=== PATIENT | female | born 1990 | race Caucasian/White ===

== ENCOUNTER → 2017-05-31 | Outpatient (CLI) | payer OTHER ==
--- NOTE | 2017-05-31 22:21 | MR ---
EXAMINATION TYPE: MR brain wo/w con DATE OF EXAM: 05/31/2017 COMPARISON: Prior MRI brain January 04, 2016. HISTORY: White matter changes per order. Symptoms of headaches and dizziness or hearing loss per jaquan ent. TECHNIQUE: Multiplanar, multisequence images of the brain and brainstem is performed without and with IV contras t, utilizing 5.5 mL intravenous Gadavist gadolinium contrast is administered intravenously. Demyelin ating disease protocol with additional Sagittal Flair sequence performed. FINDINGS: T2 Lesions Present : Yes Approximate Number of Lesions: 5-8 small scattered lesions all measuring 4 mm or smaller in size Locations Identified : Scattered deep and periventricular Size of Reference Lesion(s): 1. 0.4 cm x 0.3 cm x 0.1 cm on axial image 21 and sagittal image 25 right frontal lesion stable Enhancing Lesion(s) Present: No Change from Prior: Stable Diffusion weighted images demonstrate no evidence of a recent infarct or other diffusion abnormality. There is no worrisome extra-axial fluid collection. The ventricular system and cisternal spaces ar e normal in size and appearance. The brain volume is age appropriate. Midline structures demonstrate normal morphology. The craniocervical junction appears within normal limits. Post contrast images demonstrate no abnormal enhancement. The dural venous sinuses appear pa tent. There is mild mucosal thickening inferiorly in bilateral ethmoid sinuses redemonstrated. The v isualized sinuses are otherwise clear and the globes are intact. IMPRESSION: Minimal nonspecific white matter changes redemonstrated. No new or enhancing lesions are seen.
== END | disposition home or self-care (01) ==
LOC: RADMRIMAIN 20:30
PROVIDERS: ATTEND Nurse Practitioner Acute Care
DX: R90.82 White matter disease, unspecified (principal)
CPT/HCPCS: 70553; A9581

== ENCOUNTER → 2019-01-15 | Outpatient (CLI) | payer BC ==
[2019-01-15 21:53] LABS: Hemoglobin A1C 5.4 % (4.0-6.0)
== END | disposition home or self-care (01) ==
LOC: LABWHC1 13:51
PROVIDERS: ATTEND Family Medicine
DX: Z51.81 Encounter for therapeutic drug level monitoring (principal); Z79.899 Other long term (current) drug therapy
CPT/HCPCS: 36415; 83036; 84681

== ENCOUNTER → 2019-02-12 | Outpatient (CLI) | payer BC | END | disposition home or self-care (01) | LOC: LABWHC1 10:35 | PROVIDERS: ATTEND Family Medicine | DX: R10.9 Unspecified abdominal pain (principal) | CPT/HCPCS: 36415; 84681 ==

== ENCOUNTER → 2019-02-15 | Outpatient (CLI) | payer BC | END | disposition home or self-care (01) | LOC: LABWHC1 09:53 | PROVIDERS: ATTEND Obstetrics & Gynecology | DX: Z34.90 Encounter for supervision of normal pregnancy, unspecified, unspecified trimester (principal) | CPT/HCPCS: 36415; 84702 ==

== ENCOUNTER → 2019-02-18 | Outpatient (CLI) | payer BC | END | disposition home or self-care (01) | LOC: LABWHC1 09:22 | PROVIDERS: ATTEND Obstetrics & Gynecology | DX: Z34.90 Encounter for supervision of normal pregnancy, unspecified, unspecified trimester (principal); Z3A.00 Weeks of gestation of pregnancy not specified | CPT/HCPCS: 36415; 84702 ==

== ENCOUNTER 2019-10-01 12:27 | Observation (INO) | payer BC ==
[2019-10-01] MEDS ORDERED: SODIUM CHLORIDE 0.9% 2,000 ML IV ONE (13:14)
[2019-10-01] MEDS ORDERED: ACETAMINOPHEN TAB 500 MG TAB PO STA (13:15)
[2019-10-01 14:07] LABS: Appearance,Urine Cloudy (Clear); Bacteria,Urine Rare /hpf; Bilirubin,Urine Negative (Negative); Blood,Urine Negative (Negative); Color,Urine Yellow; Glucose,Urine (UA) Negative (Negative); Hyaline Casts,Urine 3 /lpf (0-2); Ketones,Urine 4+ (Negative); Leukocyte Esterase,Urine Large (Negative); Mucus,Urine Few /hpf; Nitrite,Urine Negative (Negative); PH, Urine 6.5 (5.0-8.0); Protein,Urine 1+ (Negative); RBC,Urine 2 /hpf (0-5); Specific Gravity,Urine 1.025 (1.001-1.035); Squamous Epithelial Cell,Urine 15 /hpf (0-4); Urobilinogen,Urine <2.0 mg/dL (<2.0); WBC,Urine 5 /hpf (0-5)
[2019-10-01] MEDS ORDERED: diphenhydrAMINE 25 MG CAP PO STA (14:15)
--- NOTE | 2019-10-01 14:19 | ED ---
URI HPI - General Chief Complaint: Upper Respiratory Infection Stated Complaint: 36wks preg, fever, cough Time Seen by Provider: 10/01/19 12:56 Source: patient, RN notes reviewed, old records reviewed Mode of arrival: ambulatory Limitations: no limitations - History of Present Illness Initial Comments: 29-year-old female presents today for a valve her concern for cough congestion and fever. She is 36 weeks . It is a . Her STAMPING MILL TENDER is Dr. Prince. She does have a history of gestational diabetes. She states that she was treated with a Z-Jeb for upper respiratory congestion last week. She was doing well up until last night when she started to develop a fever. Patient reports she's had persistent coughing that has been nonproductive. She denies any pleuritic chest pain. She does report that her abdominal muscles and chest wall muscles have been sore due to coughing. Did have a dose of Tylenol 6:00. - Related Data Home Medications Medication Instructions Recorded Confirmed Pnv,Calcium 72/Iron/Folic Acid 1 tab PO 09/11/19 [ Plus Tablet] Previous Rx's Medication Instructions Recorded SUMAtriptan SUCCINATE [Imitrex] 50 mg PO ONCE PRN #10 tablet 08/13/15 Ciprofloxacin HCl [Cipro] 500 mg PO Q12HR #10 tablet 07/07/17 Hydrocodone/Acetaminophen [Lovilia 1 tab PO Q6HR PRN #15 tab 07/07/17 5-325] Ibuprofen [Motrin] 600 mg PO Q8HR PRN #30 tab 07/07/17 Allergies Allergy/AdvReac Type Severity Reaction Status Date / Time adhesive tape Allergy Rash/Hives Verified 09/30/19 10:00 Review of Systems ROS Statement: Those systems with pertinent positive or pertinent negative responses have been documented in the HPI. ROS Other: All systems not noted in ROS Statement are negative. Past Medical History Past Medical History: Neurologic Disorder Additional Past Medical History / Comment(s): anxiety History of Any Multi-Drug Resistant Organisms: None Reported Additional Past Surgical History / Comment(s): oral, laparoscopy Past Psychological History: Anxiety, Depression Smoking Status: Never smoker General Exam - General Exam Comments Initial Comments: Patient is a 29-year-old female. Patient appears in mild spinal discomfort. Limitations: no limitations General appearance: alert, in no apparent distress Head exam: Present: atraumatic, normocephalic, normal inspection Eye exam: Present: normal appearance, PERRL, EOMI. Absent: scleral icterus, conjunctival injection, periorbital swelling ENT exam: Present: normal exam, mucous membranes moist Neck exam: Present: normal inspection. Absent: tenderness, meningismus, lymphadenopathy Respiratory exam: Present: normal lung sounds bilaterally. Absent: respiratory distress, wheezes, rales, rhonchi, stridor Cardiovascular Exam: Present: regular rate, normal rhythm, normal heart sounds. Absent: systolic murmur, diastolic murmur, rubs, gallop, clicks GI/Abdominal exam: Present: soft, normal bowel sounds, other (36 weeks .). Absent: distended, tenderness, guarding, rebound, rigid Extremities exam: Present: normal inspection, full ROM, normal capillary refill. Absent: tenderness, pedal edema, joint swelling, calf tenderness Back exam: Present: normal inspection Neurological exam: Present: alert, oriented X3, CN II-XII intact Psychiatric exam: Present: normal affect, normal mood Skin exam: Present: warm, dry, intact, normal color. Absent: rash Course Vital Signs 10/01/19 10/01/19 10/01/19 12:46 13:38 14:15 Temperature 98.6 F 101.1 F H Pulse Rate 128 H 140 H Respiratory 18 18 Rate Blood Pressure 118/64 101/67 O2 Sat by Pulse 98 98 Oximetry 10/01/19 10/01/19 10/01/19 15:07 15:49 15:52 Temperature 99.4 F Pulse Rate 120 H 125 H Respiratory 18 18 Rate Blood Pressure 105/62 105/55 O2 Sat by Pulse 98 98 Oximetry Medical Decision Making - Medical Decision Making 29-year-old female cough congestion and fever. She is 36 weeks , started to have cough congestion and fever starting today. Was treated with azithromycin by PCP last week. Patient's STAMPING MILL TENDER is Dr. Prince. Denies any significant cramping or abdominal pain at this time. Denies specific chest pain is completely diffuse body aches and cough. is positive for influenza A. Patient was given Tylenol, 2 L bolus. Given Robitussin Tamiflu. She has a cough but no systemic chest pain. I obtained heart tones were 160 bpm. Patient at this time has continued to have tachycardia, and. Generally ill after fluid bolus. I discussed this with Dr. Crandall who discussed this with Dr. Garcia. Recommended putting the Patient on a 4 hour monitor. Patient and his family admitted to observation, the 4 hour monitor completed. Continuing fluids, Tylenol as needed for fever and pain. - Lab Data Lab Results 10/01/19 10/01/19 Range/Units 12:51 13:24 Urine Color Yellow Urine Appearance Cloudy H (Clear) Urine pH 6.5 (5.0-8.0) Ur Specific [place] 1.025 (1.001-1.035) Urine Protein 1+ H (Negative) Urine Glucose (UA) Negative (Negative) Urine Ketones 4+ H (Negative) Urine Blood Negative (Negative) Urine Nitrite Negative (Negative) Urine Bilirubin Negative (Negative) Urine Urobilinogen <2.0 (<2.0) mg/dL Ur Leukocyte Esterase Large H (Negative) Urine RBC 2 (0-5) /hpf Urine WBC 5 (0-5) /hpf Ur Squamous Epith Cells 15 H (0-4) /hpf Urine Bacteria Rare H (None) /hpf Hyaline Casts 3 H (0-2) /lpf Urine Mucus Few H (None) /hpf Influenza Type A RNA Detected H (Not Detectd) Influenza Type B (PCR) Not Detected (Not Detectd) Disposition Clinical Impression: Influenza A, 36 weeks gestation of , Dehydration Disposition: ADMITTED IP TO THIS HOSP Condition: Stable Is patient prescribed a controlled substance at d/c from ED?: No Referrals: John Aragon MD [Primary Care Provider] - 1-2 days Time of Disposition: 16:14
[2019-10-01] MEDS ORDERED: OSELTAMIVIR 75 MG CAP PO STA (15:29)
[2019-10-01] MEDS ORDERED: guaiFENesin-DM 100-10MG/5ML 10 ML CUP PO STA (15:33)
[2019-10-01] MEDS ORDERED: NALOXONE 0.4 MG/ML 1 ML VIAL IV PRN (16:14)
[2019-10-01] MEDS ORDERED: ACETAMINOPHEN TAB 325 MG TAB PO PRN (16:14)
[2019-10-01] MEDS ORDERED: SODIUM CHLORIDE 0.9% 1,000 ML IV SCH (16:15)
[2019-10-01 16:42] LABS: Glucose,Whole Blood 105 mg/dL (75-99)
[2019-10-01] MEDS ORDERED: METOCLOPRAMIDE 5 MG/ML 2 ML VIAL IVP STA (17:30)
[2019-10-01] MEDS ORDERED: guaiFENesin-DM 100-10MG/5ML 10 ML CUP PO PRN (17:32)
[2019-10-01] MEDS: LACTATED RINGERS 1,000 ML IV SCH (18:15)
[2019-10-01] MEDS: ACETAMINOPHEN TAB 500 MG TAB PO PRN (20:02)
--- NOTE | 2019-10-01 21:19 | P.OBCN ---
History of Present Illness Consult date: 10/01/19 Reason for consult: other (Influenza and ) Chief complaint: Upper respiratory symptoms, influenza, and History of present illness: This patient is a pleasant 29-year-old 1 para 0 female estimated date of confinement 10/25/2019 estimated gestational age 36-4/7 weeks who presented to the emergency department earlier today with complaints of a one-week history of upper respiratory symptoms. Patient states that she went to Dr. Silva's office with some respiratory symptoms last week given a azithromycin. Her symptoms became worse she presented to the emergency department for evaluation. Patient had a influenza a swab that was positive today and despite IV hydration, Tamiflu and IV Tylenol she is still did not appear able to go home. I was contacted by Dr. Crandall emergency department and I recommended she be admitted by her primary care for the influenza and we will follow closely with her . care is per Dr. Prince. does appear to be complicated by diet-controlled gestational diabetes. Patient's been followed with maternal- medicine for this. Review of Systems Constitutional: Reports as per HPI Respiratory: Reports as per HPI, Reports cough, Reports dyspnea, Reports wheezing Genitourinary: Reports Menstruation: Reports amenorrhea Past Medical History Past Medical History: Asthma, Neurologic Disorder Additional Past Medical History / Comment(s): anxiety History of Any Multi-Drug Resistant Organisms: None Reported Additional Past Surgical History / Comment(s): oral, laparoscopy Past Anesthesia/Blood Transfusion Reactions: No Reported Reaction Past Psychological History: Anxiety, Depression Smoking Status: Former smoker Past Alcohol Use History: Occasional Past Drug Use History: None Reported - Past Family History Mother Family Medical History: No Reported History Medications and Allergies Home Medications Medication Instructions Recorded Confirmed Type Pnv,Calcium 72/Iron/Folic Acid 1 tab PO DAILY 09/11/19 10/01/19 History [ Plus Tablet] Acetaminophen Tab [Tylenol Tab] 1,000 mg PO Q6H PRN 10/01/19 10/01/19 History Albuterol Sulfate [Ventolin HFA] 2 puff INHALATION RT-Q4H PRN 10/01/19 10/01/19 History Azithromycin [Zithromax Z-pack] See Taper PO DAILY 10/01/19 10/01/19 History Ondansetron HCl [Zofran] 4 mg PO Q8H PRN 10/01/19 10/01/19 History Allergies Allergy/AdvReac Type Severity Reaction Status Date / Time adhesive tape Allergy Rash/Hives Verified 10/01/19 17:02 Exam Vital Signs Temp Pulse Pulse Resp BP BP Pulse Ox 10/01/19 18:09 100.5 F H 116 H 20 109/60 96 10/01/19 17:46 120 H 18 113/70 98 10/01/19 16:30 118 H 18 105/62 98 10/01/19 16:00 108 H 18 105/55 98 10/01/19 15:52 125 H 18 105/55 98 10/01/19 15:49 99.4 F 10/01/19 15:07 120 H 18 105/62 98 10/01/19 14:15 101.1 F H 10/01/19 13:38 140 H 18 101/67 98 10/01/19 12:46 98.6 F 128 H 18 118/64 98 Intake and Output 10/01/19 10/01/19 10/01/19 06:59 14:59 22:59 Other: Weight 72.575 kg 71.668 kg Results blood work shows she is O positive, rubella immune, RPR nonreactive, hepatitis B negative, HIV is nonreactive, Glucola and three-hour GTT was abnormal and she's been followed by maternal medicine for this. Abnormal Lab Results - Last 24 Hours (Table) 10/01/19 10/01/19 10/01/19 Range/Units 12:51 13:24 16:40 POC Glucose (mg/dL) 105 H (75-99) mg/dL Urine Appearance Cloudy H (Clear) Urine Protein 1+ H (Negative) Urine Ketones 4+ H (Negative) Ur Leukocyte Esterase Large H (Negative) Ur Squamous Epith Cells 15 H (0-4) /hpf Urine Bacteria Rare H (None) /hpf Hyaline Casts 3 H (0-2) /lpf Urine Mucus Few H (None) /hpf Influenza Type A RNA Detected H (Not Detectd) Assessment and Plan Assessment: This is a pleasant 29-year-old 1 para 0 female 36-4/7 weeks gestation with a 1 week history of upper respiratory infection and positive influenza a swab. Patient's been already given Tamiflu in the emergency department and IV Tylenol as well as IV hydration. Patient's heart tones do show a higher baseline due to the patient's temperature however there is excellent variability and is very reassuring. From an obstetrical standpoint we should continue IV fluids and continuous monitoring at this time she needed continue IV Tylenol to control her temperature. Continue to follow with her primary care for respiratory treatment. (1) 36 weeks gestation of Current Visit: Yes Status: Acute Code(s): Z3A.36 - 36 WEEKS GESTATION OF SNOMED Code(s): 05943373 (2) Dehydration Current Visit: Yes Status: Acute Code(s): E86.0 - DEHYDRATION SNOMED Code(s): 93704972 (3) Influenza A Current Visit: Yes Status: Acute Code(s): J10.1 - FLU DUE TO OTH IDENT INFLUENZA VIRUS W OTH RESP MANIFEST SNOMED Code(s): 491706033
[2019-10-01] MEDS: OSELTAMIVIR 75 MG CAP PO SCH (22:02)
[2019-10-02] MEDS: LACTATED RINGERS 1,000 ML IV SCH (02:32)
[2019-10-02] MEDS: ACETAMINOPHEN TAB 500 MG TAB PO PRN (02:35)
[2019-10-02] MEDS: METOCLOPRAMIDE 5 MG/ML 2 ML VIAL IVP SCH ×2 (03:30→12:51)
--- NOTE | 2019-10-02 07:57 | P.PN ---
Progress Note - Text Progress Note Date: 10/02/19 Pt is 36 weeks 4 days today. Her flu symptoms are improving with tamiflu and IV hydration. The heart rate has come down to a normal range and is category 1 now. She will have NSTs q shift while in the hospital. She knows to take tylenol for fever and finish her tamiflu course. She is not lilliana and there is good movement. Sugars are controlled.
[2019-10-02 08:38] LABS: Glucose,Whole Blood 78 mg/dL (75-99)
[2019-10-02] MEDS: OSELTAMIVIR 75 MG CAP PO SCH (08:53)
[2019-10-02 09:18] VITALS: RESP 16
[2019-10-02 12:33] LABS: Glucose,Whole Blood 116 mg/dL (75-99)
[2019-10-02 12:51] VITALS: BP 113/70; PULSE 108; TEMP 98.8
--- NOTE | 2019-10-02 15:16 | HP ---
HISTORY AND PHYSICAL A 29-year-old white female, upper respiratory symptoms, influenza and , came in due to her wheezing and upper respiratory cough, congestion, failed on Z-Jeb as an outpatient. She was not able to go home due to severe dehydration and respiratory symptoms and nausea, vomiting. She is admitted to the hospital. She has a history of gestational diabetes. She is admitted with IV fluids and Tamiflu. 14-POINT REVIEW OF SYSTEMS: Negative except for being 37 weeks . She has history of anxiety, depression, former smoker. MEDICATIONS: At home include vitamin, Tylenol, Ventolin, failed Z-Jeb, Zofran p.r.n. ALLERGIES: ADHESIVE TAPE T-max is a 101.1, pulse 118 TO 120, respiratory 18-20, blood pressure is 100s to 115/60s to 70s, O2 is 98% on room air. INTEGUMENT: Dry mucous membranes. Poor skin turgor. LUNGS: Scattered rhonchi and wheeze. CARDIOVASCULAR: S1, S2, tachy. HEMATOLOGY: Negative Homans. ABDOMEN: Gravid. She is 36 and 4/7 weeks gestation with influenza A. Started on Tamiflu and IV fluids for dehydration and nausea medications. , consult Dr. Oliveros. Continue with IV fluids, rehydration. Please see further orders. When patient clinically improves, possibly a nonstress test will be done. MMODL / IJN: [id number] /
--- NOTE | 2019-10-08 16:01 | P.DS ---
Providers Date of admission: 10/01/19 17:27 Expected date of discharge: 10/02/19 Attending physician: John Aragon Consults: 10/01/19 16:14 Consult Physician Stat Consulting Provider: Lenin Oliveros Consult Reason/Comments: Influenza, 36 weeks Do you want consulting provider notified?: Yes Primary care physician: [facility] Course: Final Diagnoses: Acute influenza A with upper respiratory infection, failed outpatient treatment Dehydration This is a 36 week female admitted with acute influenza with nausea vomiting up her respiratory symptoms of cough congestion, wheezing, failed outpatient treatment with history of gestational diabetes. Evaluated by PLANNING ADVISOR. Maintained on IV fluid hydration, Tamiflu. Blood sugars controlled. Significa nt clinical improvement. Cleared by PLANNING ADVISOR for discharge. Patient is being discharged home in a stable condition with guarded prognosis. The impression and plan of care has been dictated as directed. : I performed a history and examination of this patient, discussed the same with the dictator. I agree with the dictator's note ,documented as a scribe. Any additional findings or plans will be noted. Patient Condition at Discharge: Stable Plan - Discharge Summary New Discharge Prescriptions: New Oseltamivir [Tamiflu] 75 mg PO Q12HR #8 cap Continue Pnv,Calcium 72/Iron/Folic Acid [ Plus Tablet] 1 tab PO DAILY Albuterol Sulfate [Ventolin HFA] 2 puff INHALATION RT-Q4H PRN PRN Reason: Shortness Of Breath Acetaminophen Tab [Tylenol] 1,000 mg PO Q6H PRN PRN Reason: Fever Ondansetron HCl [Zofran] 4 mg PO Q8H PRN PRN Reason: Nausea And Vomiting Azithromycin [Zithromax Z-pack] See Taper PO DAILY Discharge Medication List Pnv,Calcium 72/Iron/Folic Acid [ Plus Tablet] 1 tab PO DAILY 09/11/19 [History] Acetaminophen Tab [Tylenol] 1,000 mg PO Q6H PRN 10/01/19 [History] Albuterol Sulfate [Ventolin HFA] 2 puff INHALATION RT-Q4H PRN 10/01/19 [History] Azithromycin [Zithromax Z-pack] See Taper PO DAILY 10/01/19 [History] Ondansetron HCl [Zofran] 4 mg PO Q8H PRN 10/01/19 [History] Oseltamivir [Tamiflu] 75 mg PO Q12HR #8 cap 10/02/19 [Rx] Follow up Appointment(s)/Referral(s): John Aragon MD [Primary Care Provider] - 3 Days Activity/Diet/Wound Care/Special Instructions: Confirm PLANNING ADVISOR follow-up visit prior to discharge Discharge Disposition: HOME SELF-CARE
== END 2019-10-02 15:40 | disposition home or self-care (01) ==
LOC: EC 12:27 → 4FBP 17:27
PROVIDERS: ADMIT Family Medicine; ATTEND Family Medicine
DX: O98.513 Other viral diseases complicating pregnancy, third trimester (principal); J10.1 Influenza due to other identified influenza virus with other respiratory manifestations; O99.283 Endocrine, nutritional and metabolic diseases complicating pregnancy, third trimester; E86.0 Dehydration; O26.893 Other specified pregnancy related conditions, third trimester; R29.90 Unspecified symptoms and signs involving the nervous system; O99.343 Other mental disorders complicating pregnancy, third trimester; F41.9 Anxiety disorder, unspecified; F32.9 Major depressive disorder, single episode, unspecified; O99.513 Diseases of the respiratory system complicating pregnancy, third trimester; J45.909 Unspecified asthma, uncomplicated; O24.410 Gestational diabetes mellitus in pregnancy, diet controlled; Z3A.36 36 weeks gestation of pregnancy; Z87.891 Personal history of nicotine dependence; Z79.899 Other long term (current) drug therapy; Z91.09 Other allergy status, other than to drugs and biological substances; Z98.890 Other specified postprocedural states
CPT/HCPCS: 96361; 96374; 99284; 36415; 81001; 87502; G0378 ×2; J2765

== ENCOUNTER 2019-10-22 05:52 | Inpatient (IN) | payer BC ==
[2019-10-22 06:12] LABS: Glucose,Whole Blood 88 mg/dL (75-99)
[2019-10-22] MEDS ORDERED: OXYTOCIN 10 UNIT/ML 1 ML VIAL IM PRN (06:13)
[2019-10-22] MEDS ORDERED: CARBOPROST TROMETHAMINE 250 MCG/ML 1 ML AMP IM PRN (06:13)
[2019-10-22] MEDS ORDERED: LIDOCAINE 0.5% (PF) 5 MG/ML (50 ML SDV) SQ PRN (06:13)
[2019-10-22] MEDS ORDERED: TERBUTALINE 1 MG/ML VIAL SQ PRN (06:13)
[2019-10-22] MEDS ORDERED: METHYLERGONOVINE 0.2 MG/ML 1 ML AMP IM PRN (06:13)
[2019-10-22] MEDS ORDERED: LACTATED RINGERS 1,000 ML IV SCH (06:15)
[2019-10-22] MEDS: LACTATED RINGERS 1,000 ML IV SCH ×2 (06:15→09:51)
[2019-10-22] MEDS ORDERED: OXYTOCIN 30 UNITS/500 ML NS 30 UNIT in SALINE 1 500ML.BAG IV SCH (06:15)
[2019-10-22 06:25] LABS: Basophils % (A) 0 %; Eosinophils # (A) 0.1 k/uL (0-0.7); Eosinophils % (A) 1 %; HCT 37.8 % (34.0-46.0); HGB 12.1 gm/dL (11.4-16.0); Lymphocytes % (A) 27 %; MCH 28.9 pg (25.0-35.0); MCV 90.5 fL (80.0-100.0); Mean Platelet Volume 7.9; Monocytes # (A) 0.4 k/uL (0-1.0); Monocytes % (A) 5 %; Neutrophils # (A) 4.8 k/uL (1.3-7.7); Neutrophils % (A) 64 %; Platelet Count 165 k/uL (150-450); RBC 4.18 m/uL (3.80-5.40); RDW 13.4 % (11.5-15.5); WBC 7.5 k/uL (3.8-10.6)
[2019-10-22] MEDS ORDERED: ROPIVACAINE 100 MG, fentaNYL (PF) 200 MCG in SODIUM CHLORIDE 0.9% 76 ML EPIDURAL ONE (12:51)
[2019-10-22] MEDS ORDERED: LANOLIN CREAM 5 GM TUBE TOPICAL PRN (13:20)
[2019-10-22] MEDS ORDERED: ZOLPIDEM 5 MG TAB PO PRN (13:20)
[2019-10-22] MEDS ORDERED: BENZOCAINE/MENTHOL SPRAY 1 GM/SPRAY AEROSOL TOPICAL PRN (13:20)
[2019-10-22] MEDS ORDERED: HYDROCORTISONE 2.5% RECTAL CREAM 30 GM TUBE RECTAL PRN (13:20)
[2019-10-22] MEDS ORDERED: WITCH HAZEL 1 EACH MED..PAD TOPICAL PRN (13:20)
[2019-10-22] MEDS ORDERED: diphenhydrAMINE 50 MG/ML 1 ML VIAL IVP PRN ×2 (13:20)
[2019-10-22] MEDS ORDERED: diphenhydrAMINE 50 MG CAP PO PRN (13:20)
[2019-10-22] MEDS ORDERED: SIMETHICONE 80 MG CHEWABLE PO PRN (13:20)
[2019-10-22] MEDS ORDERED: ACETAMINOPHEN TAB 325 MG TAB PO PRN (13:20)
[2019-10-22] MEDS ORDERED: diphenhydrAMINE 25 MG CAP PO PRN (13:20)
[2019-10-22] MEDS ORDERED: OXYTOCIN 20 UNITS/1000 ML NS 1,000 ML IV SCH (13:30)
[2019-10-22] MEDS: SENNOSIDES-DOCUSATE SODIUM 1 EACH TAB PO SCH (22:03)
[2019-10-23] MEDS: IBUPROFEN 600 MG TAB PO PRN ×2 (01:30→13:17)
[2019-10-23 07:46] LABS: Basophils % (A) 0 %; Eosinophils # (A) 0.1 k/uL (0-0.7); Eosinophils % (A) 1 %; Lymphocytes # (A) 1.8 k/uL (1.0-4.8); Lymphocytes % (A) 20 %; MCH 29.3 pg (25.0-35.0); MCHC 32.6 g/dL (31.0-37.0); MCV 89.9 fL (80.0-100.0); Mean Platelet Volume 8.3; Monocytes # (A) 0.3 k/uL (0-1.0); Monocytes % (A) 3 %; Neutrophils # (A) 6.4 k/uL (1.3-7.7); Neutrophils % (A) 74 %; Platelet Count 138 k/uL (150-450); RBC 3.34 m/uL (3.80-5.40); RDW 13.4 % (11.5-15.5); WBC 8.7 k/uL (3.8-10.6)
[2019-10-23 07:57] LABS: HGB 9.8 gm/dL (11.4-16.0)
[2019-10-23] MEDS: SENNOSIDES-DOCUSATE SODIUM 1 EACH TAB PO SCH ×2 (08:04→19:37)
--- NOTE | 2019-10-23 08:49 | P.HPOB ---
History of Present Illness H&P Date: 10/22/19 Chief Complaint: Induction of Labor 29-year-old presents at 39 weeks and 4 days for induction of labor. She has gestational diabetes diet controlled and her blood sugar this morning is 88. Her cervix is dilated to 3 cm, 70% effaced, and -2 station. She is lilliana irregularly. heart tones 130 with moderate variability and reactive. Review of Systems All systems: negative Constitutional: Denies chills, Denies fever Eyes: denies blurred vision, denies pain Ears, nose, mouth and throat: Denies headache, Denies sore throat Cardiovascular: Denies chest pain, Denies shortness of breath Respiratory: Denies cough Gastrointestinal: Denies abdominal pain, Denies diarrhea, Denies nausea, Denies vomiting Genitourinary: Denies dysuria, Denies hematuria Musculoskeletal: Denies myalgias Integumentary: Denies pruritus, Denies rash Neurological: Denies numbness, Denies weakness Psychiatric: Denies anxiety, Denies depression Endocrine: Denies fatigue, Denies weight change Past Medical History Past Medical History: Asthma, Neurologic Disorder Additional Past Medical History / Comment(s): Obstetric history: This is her first and she's had care with me since the first trimester. Blood type is O+, antibody is negative, rubella immune, hepatitis B negative, HIV negative, RPR nonreactive, GBS negative. She's been followed for gestat ional diabetes, diet controlled. History of Any Multi-Drug Resistant Organisms: None Reported Additional Past Surgical History / Comment(s): oral, laparoscopy Past Anesthesia/Blood Transfusion Reactions: No Reported Reaction Past Psychological History: Anxiety, Depression Smoking Status: Former smoker Past Alcohol Use History: Occasional Past Drug Use History: None Reported - Past Family History Mother Family Medical History: No Reported History Medications and Allergies Home Medications Medication Instructions Recorded Confirmed Type Pnv,Calcium 72/Iron/Folic Acid 1 tab PO DAILY 09/11/19 10/22/19 History [ Plus Tablet] Allergies Allergy/AdvReac Type Severity Reaction Status Date / Time adhesive tape Allergy Rash/Hives Verified 10/22/19 06:03 Exam Osteopathic Statement: *. No significant issues noted on an osteopathic structural exam other than those noted in the History and Physical/Consult. Vital Signs Temp Pulse Resp BP Pulse Ox 10/23/19 08:00 98.1 F 89 17 124/82 98 10/23/19 00:00 98.5 F 83 16 109/71 10/22/19 20:00 98.8 F 71 14 114/68 98 10/22/19 15:15 97 F L 94 16 120/56 10/22/19 14:45 99 16 122/70 10/22/19 14:15 100 16 116/63 10/22/19 14:00 101 H 16 115/67 10/22/19 13:45 87 16 112/63 10/22/19 13:30 95 16 116/68 10/22/19 13:15 97.4 F L 87 16 125/70 97 Intake and Output 10/22/19 10/23/19 10/23/19 22:59 06:59 14:59 Intake Total 300 Output Total 140 Balance -140 300 Intake: Oral 300 Output: Estimated Blood Loss 140 Other: # Voids 1 2 Heart: Regular rate and rhythm Lungs: Clear to auscultation bilaterally Abdomen: Soft, nontender Extremities: Negative Homans sign Results Result Diagrams: 10/23/19 07:14 Abnormal Lab Results - Last 24 Hours (Table) 10/23/19 Range/Units 07:14 RBC 3.34 L (3.80-5.40) m/uL Hgb 9.8 L D (11.4-16.0) gm/dL Hct 30.0 L (34.0-46.0) % Plt Count 138 L (150-450) k/uL Assessment and Plan (1) Normal labor Current Visit: Yes Status: Acute Code(s): O80 - ENCOUNTER FOR FULL-TERM UN COMPLICATED DELIVERY; Z37.9 - OUTCOME OF DELIVERY, UNSPECIFIED SNOMED Code(s): 73955853 (2) Gestational diabetes mellitus, class A1 Current Visit: Yes Status: Acute Code(s): O24.410 - GESTATIONAL DIABETES MELLITUS IN , DIET CONTROLLED SNOMED Code(s): 14856324 Plan: 1. Induction of labor with amniotomy and Pitocin 2. Anticipate normal vaginal delivery
--- NOTE | 2019-10-23 08:51 | P.PROBDLV ---
Vaginal Delivery Note - . Vaginal Delivery Note: 29-year-old presents at 39 weeks and 4 days for induction of labor. She has gestational diabetes diet controlled and her blood sugar this morning is 88. Her cervix is dilated to 3 cm, 70% effaced, and -2 station. She is lilliana irregularly. heart tones 130 with moderate variability and reactive. Pitocin was started. Amniotomy was performed at 8:03 AM, clear fluid noted. When she was uncomfortable she did get an epidural. Her cervix was completely dilated at 1240. She pushed, delivered a viable female infant over intact perineum under epidural anesthesia 1259. Head delivered OA, anterior shoulder delivered gentle downward guidance followed by posterior shoulder and rest of body. Nose and mouth bulb suctioned, cord clamped and cut, infant placed mother's abdomen. Apgars 9, 9, weight 8 lbs. 3 oz. Placenta delivered spontaneously, intact with three-vessel cord at 1302. Vagina, cervix, perineum inspected. Second-degree midline laceration was repaired with 3-0 Vicryl. Estimated blood loss 200 mL. Mother and baby in stable condition.
--- NOTE | 2019-10-23 08:53 | P.DS ---
Providers Date of admission: 10/22/19 05:52 Expected date of discharge: 10/23/19 Attending physician: Dana Prince Primary care physician: Stated None - Discharge Diagnosis(es) (1) Normal labor Current Visit: Yes Status: Resolved (2) Gestational diabetes mellitus, class A1 Current Visit: Yes Status: Resolved (3) Normal vaginal delivery Current Visit: Yes Status: Acute Hospital Course: Patient presented for induction of labor. She underwent a normal vaginal delivery. Her course was uncomplicated. She denies nausea, vomiting, chest pain, shortness of breath or calf pain. She'll be discharged home day #1 in stable condition to follow-up with me in 6 weeks. Plan - Discharge Summary New Discharge Prescriptions: New Ibuprofen [Motrin] 600 mg PO Q6HR PRN #30 tab PRN Reason: Mild Pain Or Fever >= 100.5 No Action Pnv,Calcium 72/Iron/Folic Acid [ Plus Tablet] 1 tab PO DAILY Discharge Medication List Pnv,Calcium 72/Iron/Folic Acid [ Plus Tablet] 1 tab PO DAILY 09/11/19 [History] Ibuprofen [Motrin] 600 mg PO Q6HR PRN #30 tab 10/23/19 [Rx] Follow up Appointment(s)/Referral(s): Dana Prince DO [Doctor of Osteopathic Medicine] - 6 Weeks Discharge Disposition: HOME SELF-CARE
[2019-10-24] MEDS: IBUPROFEN 600 MG TAB PO PRN (04:30)
[2019-10-24 08:01] VITALS: BP 129/73; PULSE 90; RESP 13; TEMP 98.2
[2019-10-24] MEDS: SENNOSIDES-DOCUSATE SODIUM 1 EACH TAB PO SCH (08:36)
== END 2019-10-24 18:42 | disposition home or self-care (01) | DRG 807 ==
LOC: 4FBP 05:52 → MERGE 06:00
PROVIDERS: ADMIT Obstetrics & Gynecology; ATTEND Obstetrics & Gynecology
PROC: 10907ZC Drainage of Amniotic Fluid, Therapeutic from Products of Conception, Via Natural or Artificial Opening (ICD-10-PCS; principal; 2019-10-22)
PROC: 0KQM0ZZ Repair Perineum Muscle, Open Approach (ICD-10-PCS; principal; 2019-10-22)
PROC: 3E0R3BZ Introduction of Anesthetic Agent into Spinal Canal, Percutaneous Approach (ICD-10-PCS; principal; 2019-10-22)
PROC: 10E0XZZ Delivery of Products of Conception, External Approach (ICD-10-PCS; principal; 2019-10-22)
PROC: 3E033VJ Introduction of Other Hormone into Peripheral Vein, Percutaneous Approach (ICD-10-PCS; principal; 2019-10-22)
PROC: 00HU33Z Insertion of Infusion Device into Spinal Canal, Percutaneous Approach (ICD-10-PCS; principal; 2019-10-22)
DX: O24.420 Gestational diabetes mellitus in childbirth, diet controlled (principal); Z37.0 Single live birth; J45.909 Unspecified asthma, uncomplicated; O99.52 Diseases of the respiratory system complicating childbirth; Z3A.39 39 weeks gestation of pregnancy; Z79.899 Other long term (current) drug therapy; Z87.891 Personal history of nicotine dependence; Z86.59 Personal history of other mental and behavioral disorders; Z91.048 Other nonmedicinal substance allergy status; O70.1 Second degree perineal laceration during delivery
CPT/HCPCS: 85025; 86850; 86900; 86901

== ENCOUNTER 2022-03-02 05:56 | Inpatient (IN) | payer BC, OTHER ==
[2022-03-02] MEDS ORDERED: LIDOCAINE 0.5% (PF) 5 MG/ML (50 ML SDV) SQ PRN (06:22)
[2022-03-02] MEDS ORDERED: OXYTOCIN 10 UNIT/ML 1 ML VIAL IM PRN (06:22)
[2022-03-02] MEDS ORDERED: METHYLERGONOVINE 0.2 MG/ML 1 ML AMP IM PRN (06:22)
[2022-03-02] MEDS ORDERED: CARBOPROST TROMETHAMINE 250 MCG/ML 1 ML AMP IM PRN (06:22)
[2022-03-02] MEDS ORDERED: TERBUTALINE 1 MG/ML VIAL SQ PRN (06:22)
[2022-03-02 06:29] LABS: Glucose,Whole Blood 88 mg/dL (70-110)
[2022-03-02] MEDS ORDERED: OXYTOCIN 30 UNITS/500 ML NS 30 UNIT in SALINE 1 500ML.BAG IV SCH (06:30)
[2022-03-02] MEDS: LACTATED RINGERS 1,000 ML IV SCH ×2 (06:35→15:13)
[2022-03-02 06:36] LABS: Basophils % (A) 0 %; Eosinophils # (A) 0.1 k/uL (0-0.7); Eosinophils % (A) 1 %; HCT 35.5 % (34.0-46.0); HGB 11.6 gm/dL (11.4-16.0); Lymphocytes # (A) 1.6 k/uL (1.0-4.8); Lymphocytes % (A) 28 %; MCHC 32.7 g/dL (31.0-37.0); MCV 94.8 fL (80.0-100.0); Mean Platelet Volume 8.8; Monocytes # (A) 0.3 k/uL (0-1.0); Monocytes % (A) 4 %; Neutrophils # (A) 3.9 k/uL (1.3-7.7); Neutrophils % (A) 66 %; Platelet Count 168 k/uL (150-450); RBC 3.75 m/uL (3.80-5.40); RDW 12.9 % (11.5-15.5); WBC 5.9 k/uL (3.8-10.6)
--- NOTE | 2022-03-02 07:37 | P.HPOB ---
History of Present Illness H&P Date: 03/02/22 Chief Complaint: Induction of labor 32 year old presents at 39 weeks 2 days for induction of labor. Her cervix is 5 cm dilated, 80% effaced, -1 station. She is lilliana irregularly. heart tones 135 with moderate variability and reactive. Review of Systems All systems: negative Constitutional: Denies chills, Denies fever Eyes: denies blurred vision, denies pain Ears, nose, mouth and throat: Denies headache, Denies sore throat Cardiovascular: Denies chest pain, Denies shortness of breath Respiratory: Denies cough Gastrointestinal: Denies abdominal pain, Denies diarrhea, Denies nausea, Denies vomiting Genitourinary: Denies dysuria, Denies hematuria Musculoskeletal: Denies myalgias Integumentary: Denies pruritus, Denies rash Neurological: Denies numbness, Denies weakness Psychiatric: Denies anxiety, Denies depression Endocrine: Denies fatigue, Denies weight change Past Medical History Past Medical History: Neurologic Disorder Additional Past Medical History / Comment(s): Obstetric history: First was a vaginal delivery. This is her second and she's had care with me since the first trimester. Blood type is O+, antibody is negative, rubella immune, hepatitis B negative, HIV negative, RPR nonreactive, GBS negat chandu. She's been followed for gestational diabetes, diet controlled. History of Any Multi-Drug Resistant Organisms: None Reported Additional Past Surgical History / Comment(s): oral, laparoscopy 8 years ago Past Anesthesia/Blood Transfusion Reactions: No Reported Reaction Past Psychological History: Anxiety, Depression Smoking Status: Former smoker Past Alcohol Use History: Occasional Past Drug Use History: None Reported - Past Family History Mother Family Medical History: No Reported History Medications and Allergies Home Medications Medication Instructions Recorded Confirmed Type Vit No.180/Iron/Folic 1 tab PO DAILY 09/11/19 03/02/22 History [ Plus Vitamin-Mineral] Allergies Allergy/AdvReac Type Severity Reaction Status Date / Time adhesive tape Allergy Rash/Hives Verified 10/22/19 06:03 Exam Osteopathic Statement: *. No significant issues noted on an osteopathic structural exam other than those noted in the History and Physical/Consult. Vital Signs Temp Pulse Resp BP Pulse Ox 03/02/22 07:16 97.3 F L 98 16 110/77 97 Intake and Output 03/01/22 03/02/22 03/02/22 22:59 06:59 14:59 Other: Weight 67.585 kg 67.585 kg Heart: Regular rate and rhythm Lungs: Clear to auscultation bilaterally Abdomen: Soft, nontender Extremities: Negative Homans sign Blood sugar is 88 this morning Results Result Diagrams: 03/02/22 06:20 Abnormal Lab Results - Last 24 Hours (Table) 03/02/22 Range/Units 06:20 RBC 3.75 L (3.80-5.40) m/uL Assessment and Plan (1) 39 weeks gestation of Current Visit: Yes Status: Acute Code(s): Z3A.39 - 39 WEEKS GESTATION OF SNOMED Code(s): 00154002 (2) Gestational diabetes mellitus, class A1 Current Visit: No Status: Resolved Code(s): O24.410 - GESTATIONAL DIABETES MELLITUS IN , DIET CONTROLLED SNOMED Code(s): 02459829 (3) Encounter for induction of labor Current Visit: Yes Status: Acute Code(s): Z34.90 - ENCNTR FOR SUPRVSN OF NORMAL , UNSP, UNSP TRIMESTER SNOMED Code(s): 911531307 Plan: 1. Induction of labor with amniotomy and Pitocin 2. Anticipate normal vaginal delivery
[2022-03-02] MEDS ORDERED: ROPIVACAINE 100 MG, fentaNYL (PF). 200 MCG in SODIUM CHLORIDE 0.9% 76 ML EPIDURAL ONE (08:19)
[2022-03-02] MEDS ORDERED: diphenhydrAMINE 25 MG CAP PO PRN (09:26)
[2022-03-02] MEDS ORDERED: BENZOCAINE/MENTHOL SPRAY 1 GM/SPRAY AEROSOL TOPICAL PRN (09:26)
[2022-03-02] MEDS ORDERED: SIMETHICONE 80 MG CHEWABLE PO PRN (09:26)
[2022-03-02] MEDS ORDERED: HYDROCORTISONE 2.5% RECTAL CREAM 30 GM TUBE RECTAL PRN (09:26)
[2022-03-02] MEDS ORDERED: ACETAMINOPHEN TAB 325 MG TAB PO PRN (09:26)
[2022-03-02] MEDS ORDERED: LANOLIN CREAM 5 GM TUBE TOPICAL PRN (09:26)
[2022-03-02] MEDS ORDERED: diphenhydrAMINE 50 MG CAP PO PRN (09:26)
[2022-03-02] MEDS ORDERED: ZOLPIDEM 5 MG TAB PO PRN (09:26)
[2022-03-02] MEDS ORDERED: diphenhydrAMINE 50 MG/ML 1 ML VIAL IVP PRN ×2 (09:26)
--- NOTE | 2022-03-02 17:02 | P.PROBDLV ---
Vaginal Delivery Note - . Vaginal Delivery Note: 32 year old presents at 39 weeks 2 days for induction of labor. Her cervix is 5 cm dilated, 80% effaced, -1 station. She is lilliana irregularly. heart tones 135 with moderate variability and reactive. Amniotomy performed and clear fluid noted. She did get an epidural right away since she was 35 cm dilated. Pitocin was started at 8:15 but the patient was completely dilated at 8:25 AM. She pushed, and delivered a viable male infant over intact perineum under epidural anesthesia at 8:32 AM. Head delivered OA, anterior shoulder delivered gentle downward guidance of the posterior shoulder and rest of body. Nose and mouth bulb suctioned, cord clamped and cut, placed on mother's abdomen. Apgars 9, 9, weight 8 pounds 11.7 ounces. Placenta delivered spontaneously, intact with three-vessel cord at 8:34 AM. Vagina, cervix, perineum inspected. First-degree midline laceration was repaired with 3-0 Vicryl. Estimated blood loss 200 mL. Mother and baby in stable condition.
[2022-03-02] MEDS: IBUPROFEN 600 MG TAB PO PRN (19:02)
[2022-03-02] MEDS: SENNOSIDES-DOCUSATE SODIUM 1 EACH TAB PO SCH (19:02)
--- NOTE | 2022-03-03 07:29 | P.DS ---
Providers Date of admission: 03/02/22 05:56 Expected date of discharge: 03/03/22 Attending physician: Dana Prince Primary care physician: John Aragon - Discharge Diagnosis(es) (1) 39 weeks gestation of Current Visit: Yes Status: Resolved (2) Gestational diabetes mellitus, class A1 Current Visit: No Status: Resolved (3) Encounter for induction of labor Current Visit: Yes Status: Resolved (4) Status post normal vaginal delivery Current Visit: Yes Status: Acute Hospital Course: Patient resided for elective induction of labor at 39 weeks. She underwent this and a normal vaginal delivery without, condition. course is uneventful. She denies nausea, vomiting, chest pain, shortness of breath or any calf pain. She'll be discharged home day #1 in stable condition to follow-up with me in 6 weeks. Plan - Discharge Summary New Discharge Prescriptions: New Ibuprofen [Motrin] 600 mg PO Q6HR PRN #30 tab PRN Reason: Mild Pain (Scale 1 To 3) No Action Vit No.180/Iron/Folic [ Plus Vitamin-Mineral] 1 tab PO DAILY Discharge Medication List Vit No.180/Iron/Folic [ Plus Vitamin-Mineral] 1 tab PO DAILY 09/11/19 [History] Ibuprofen [Motrin] 600 mg PO Q6HR PRN #30 tab 03/03/22 [Rx] Follow up Appointment(s)/Referral(s): Dana Prince DO [Doctor of Osteopathic Medicine] - 04/11/22 4:00 pm Discharge Disposition: HOME SELF-CARE
[2022-03-03 08:13] LABS: Basophils % (A) 0 %; Eosinophils # (A) 0.1 k/uL (0-0.7); Eosinophils % (A) 1 %; HCT 30.6 % (34.0-46.0); HGB 10.4 gm/dL (11.4-16.0); Lymphocytes # (A) 1.9 k/uL (1.0-4.8); Lymphocytes % (A) 29 %; MCH 32.7 pg (25.0-35.0); MCV 96.2 fL (80.0-100.0); Mean Platelet Volume 9.3; Monocytes # (A) 0.2 k/uL (0-1.0); Monocytes % (A) 4 %; Neutrophils # (A) 4.3 k/uL (1.3-7.7); Neutrophils % (A) 65 %; Platelet Count 135 k/uL (150-450); RBC 3.18 m/uL (3.80-5.40); RDW 13.3 % (11.5-15.5); WBC 6.6 k/uL (3.8-10.6)
[2022-03-03] MEDS: SENNOSIDES-DOCUSATE SODIUM 1 EACH TAB PO SCH ×2 (09:05→19:50)
[2022-03-03 23:29] VITALS: RESP 18
[2022-03-04] MEDS: IBUPROFEN 600 MG TAB PO PRN ×2 (09:02→14:28)
[2022-03-04] MEDS: SENNOSIDES-DOCUSATE SODIUM 1 EACH TAB PO SCH (09:06)
[2022-03-04 17:18] VITALS: BP 122/76; PULSE 76; TEMP 97.9
== END 2022-03-04 17:22 | disposition home or self-care (01) | DRG 807 ==
LOC: 4FBP 05:56
PROVIDERS: ADMIT Obstetrics & Gynecology; ATTEND Obstetrics & Gynecology
PROC: 10E0XZZ Delivery of Products of Conception, External Approach (ICD-10-PCS; principal; 2022-03-02)
PROC: 00HU33Z Insertion of Infusion Device into Spinal Canal, Percutaneous Approach (ICD-10-PCS; principal; 2022-03-02)
PROC: 3E033VJ Introduction of Other Hormone into Peripheral Vein, Percutaneous Approach (ICD-10-PCS; principal; 2022-03-02)
PROC: 10907ZC Drainage of Amniotic Fluid, Therapeutic from Products of Conception, Via Natural or Artificial Opening (ICD-10-PCS; principal; 2022-03-02)
PROC: 0HQ9XZZ Repair Perineum Skin, External Approach (ICD-10-PCS; principal; 2022-03-02)
PROC: 3E0R3NZ Introduction of Analgesics, Hypnotics, Sedatives into Spinal Canal, Percutaneous Approach (ICD-10-PCS; principal; 2022-03-02)
DX: O24.420 Gestational diabetes mellitus in childbirth, diet controlled (principal); O70.0 First degree perineal laceration during delivery; O99.344 Other mental disorders complicating childbirth; F32.A Depression, unspecified; F41.9 Anxiety disorder, unspecified; Z3A.39 39 weeks gestation of pregnancy; Z37.0 Single live birth; Z87.891 Personal history of nicotine dependence; Z28.310 Unvaccinated for COVID-19; Z91.048 Other nonmedicinal substance allergy status
CPT/HCPCS: 85025; 86850; 86900; 86901

== ENCOUNTER 2022-03-06 17:33 | Inpatient (IN) | payer OTHER ==
[2022-03-06] MEDS ORDERED: SODIUM CHLORIDE 0.9% 1,000 ML IV STA (18:09)
[2022-03-06] MEDS ORDERED: SODIUM CHLORIDE 0.9% 500 ML 500 ML IV STA (18:09)
[2022-03-06] MEDS ORDERED: ACETAMINOPHEN TAB 500 MG TAB PO STA (18:19)
[2022-03-06] MEDS ORDERED: IBUPROFEN 600 MG TAB PO STA (18:19)
--- NOTE | 2022-03-06 18:39 | ED ---
Headache HPI - General Source: patient, family, RN notes reviewed Mode of arrival: wheelchair Limitations: no limitations - History of Present Illness MD Complaint: headache Onset/Timin -: days(s) Location: diffuse <Stephy Young - Last Filed: 03/06/22 21:56> <DivineTalia Jairo - Last Filed: 03/09/22 22:33> - General Chief Complaint: Headache Stated Complaint: numbness in hands/face, 4days Time Seen by Provider: 03/06/22 17:49 - History of Present Illness Initial Comments: This is a 32-year-old female who presents to the emergency department for a headache and numbness and tingling in the bilateral upper and lower extremities and face. Patient is 4 days from a vaginal delivery with Dr. Prince. Patient states that yesterday she began to develop a headache and some minor numbness and tingling in the bilateral upper extremities. Since then, the symptoms have continued to progress. She continues to have a headache as well as numbness and tingling in the arms and face. Also reports some tightness in the calves, making it difficult for her to walk. Her hands are also cramping and she is unable to move them. She had a vaginal delivery 2 years ago and did not have any similar symptoms. She does have a history of migraines, however she did not have any issues with them during the itself. Also states that when she closes her eyes, she feels like she is able to see bright lights. She has never experienced any symptoms like these in the past. She does note that she is currently breast feeding. Denies any fevers, chills, sore throat, cough, dyspnea, chest pain, palpitations, abdominal pain, nausea, vomiting, diarrhea, or back pain. (Stephy Young) - Related Data Home Medications Medication Instructions Recorded Confirmed Vit No.180/Iron/Folic 1 tab PO DAILY 09/11/19 03/06/22 [ Plus Vitamin-Mineral] Previous Rx's Medication Instructions Recorded Ibuprofen [Motrin] 600 mg PO Q6HR PRN #30 tab 03/03/22 Calcium Carb-Vit D 500Mg-5Mcg 2 each PO BID-W/MEALS 90 Days #180 03/09/22 [Oscal 500+D 5 Mcg (200 Iu)] tab Ergocalciferol [Vitamin D2 (1250 1,250 mcg PO Q72H 42 Days #12 cap 03/09/22 Mcg = 24163 Iu)] Irqti-Qvm-Zwwd 278-164-250 mg 1 each PO TID 7 Days #21 packet 03/09/22 [Neutra-Phos Packet] Sulfamethoxazole/Trimethoprim 1 each PO Q12H #6 tablet 03/09/22 [Bactrim DS 800-160 mg] Allergies Allergy/AdvReac Type Severity Reaction Status Date / Time adhesive tape Allergy Rash/Hives Verified 03/06/22 19:12 Review of Systems ROS Other: All systems not noted in ROS Statement are negative. <Stephy Young - Last Filed: 03/06/22 21:56> ROS Other: All systems not noted in ROS Statement are negative. <Talia Haskins - Last Filed: 03/09/22 22:33> ROS Statement: Those systems with pertinent positive or pertinent negative responses have been documented in the HPI. Past Medical History Past Medical History: Neurologic Disorder Additional Past Medical History / Comment(s): Obstetric history: First was a vaginal delivery. This is her second and she's had care with me since the first trimester. Blood type is O+, antibody is negative, rubella immune, hepatitis B negative, HIV negative, RPR nonreactive, GBS negative. She's been followed for gestational diabetes, diet controlled. History of Any Multi-Drug Resistant Organisms: None Reported Additional Past Surgical History / Comment(s): oral, laparoscopy 8 years ago Past Anesthesia/Blood Transfusion Reactions: No Reported Reaction Past Psychological History: Anxiety, Depression Smoking Status: Former smoker Past Alcohol Use History: Occasional Past Drug Use History: None Reported - Past Family History Mother Family Medical History: No Reported History <Stephy Young - Last Filed: 03/06/22 21:56> General Exam Limitations: no limitations General appearance: alert, in distress Head exam: Present: atraumatic, normocephalic, normal inspection Respiratory exam: Present: normal lung sounds bilaterally. Absent: respiratory distress, wheezes, rales, rhonchi, stridor Cardiovascular Exam: Present: regular rate, normal rhythm, normal heart sounds. Absent: systolic murmur, diastolic murmur, rubs, gallop, clicks Extremities exam: Present: other (Bilateral hand spasms, very limited ROM of the fingers bilaterally. ) Neurological exam: Present: alert, oriented X3, CN II-XII intact Psychiatric exam: Present: normal affect, normal mood Skin exam: Present: warm, dry, intact, normal color. Absent: rash <Stephy Young - Last Filed: 03/06/22 21:56> Course Vital Signs 03/06/22 03/06/22 03/06/22 17:44 20:18 21:59 Temperature 98.1 F 98.2 F Pulse Rate 101 H 99 97 Respiratory 16 18 18 Rate Blood Pressure 124/76 122/91 120/88 O2 Sat by Pulse 98 98 98 Oximetry Medical Decision Making - Lab Data Result diagrams: 03/06/22 18:25 03/06/22 18:25 <Stephy Young - Last Filed: 03/06/22 21:56> - Lab Data Result diagrams: 03/06/22 18:25 03/08/22 06:45 <Talia Haskins - Last Filed: 03/09/22 22:33> - Medical Decision Making This is a 32-year-old female who presents to the emergency department for a headache and numbness/tingling in her face and upper and lower extremities bilaterally. She also has spasms to the bilateral hands. Patient's serum and ionized calcium were found to be critically low, even when corrected for hypoalbuminemia. Patient was replaced with 3 g IV calcium gluconate. Her sympt oms did slowly begin to improve and at this point she still has mild residual numbness and spasms in her hands, however, again, the symptoms are significantly improved from prior. At this point, we are unsure what is causing the hypocalcemia. Additional laboratory studies ordered in order to determine the culprit. Patient will be admitted for hypocalcemia. This case was discussed in detail with the attending ED physician. Presentation, findings, and treatment plan discussed in detail as well. (Stephy Young) - Lab Data Lab Results 03/06/22 03/06/22 03/06/22 Range/Units 18:25 18:25 18:25 WBC 6.8 (3.8-10.6) k/uL RBC 3.33 L (3.80-5.40) m/uL Hgb 11.3 L (11.4-16.0) gm/dL Hct 31.9 L (34.0-46.0) % MCV 95.8 (80.0-100.0) fL MCH 34.1 (25.0-35.0) pg MCHC 35.6 (31.0-37.0) g/dL RDW 13.1 (11.5-15.5) % Plt Count 225 (150-450) k/uL MPV 7.5 Neutrophils % 74 % Lymphocytes % 21 % Monocytes % 3 % Eosinophils % 1 % Basophils % 0 % Neutrophils # 5.0 (1.3-7.7) k/uL Lymphocytes # 1.4 (1.0-4.8) k/uL Monocytes # 0.2 (0-1.0) k/uL Eosinophils # 0.1 (0-0.7) k/uL Basophils # 0.0 (0-0.2) k/uL Hypochromasia Slight Sodium 138 (137-145) mmol/L Potassium 3.6 (3.5-5.1) mmol/L Chloride 111 H (98-107) mmol/L Carbon Dioxide 24 (22-30) mmol/L Anion Gap 3 mmol/L BUN 4 L (7-17) mg/dL Creatinine 0.40 L (0.52-1.04) mg/dL Est GFR (CKD-EPI)AfAm >90 (>60 ml/min/1.73 sqM) Est GFR (CKD-EPI)NonAf >90 (>60 ml/min/1.73 sqM) Glucose 82 (74-99) mg/dL Plasma Lactic Acid Ronnie 0.7 (0.7-2.0) mmol/L Calcium 4.9 L* (8.4-10.2) mg/dL Ionized Calcium Mila (4.5-5.3) mg/dL Phosphorus (2.5-4.5) mg/dL Magnesium (1.6-2.3) mg/dL Total Bilirubin 0.2 (0.2-1.3) mg/dL AST 121 H (14-36) U/L ALT 30 (4-34) U/L Alkaline Phosphatase 148 H (38-126) U/L Lactate Dehydrogenase 768 H (313-618) U/L Creatine Kinase (30-135) U/L Total Protein 6.2 L (6.3-8.2) g/dL Albumin 3.3 L (3.5-5.0) g/dL Amylase (30-110) U/L Lipase (23-300) U/L PTH Intact (14.0-72.0) pg/mL Urine Color Urine Appearance (Clear) Urine pH (5.0-8.0) Ur Specific [place] (1.001-1.035) Urine Protein (Negative) Urine Glucose (UA) (Negative) Urine Ketones (Negative) Urine Blood (Negative) Urine Nitrite (Negative) Urine Bilirubin (Negative) Urine Urobilinogen (<2.0) mg/dL Ur Leukocyte Esterase (Negative) Urine RBC (0-5) /hpf Urine WBC (0-5) /hpf Ur Squamous Epith Cells (0-4) /hpf 03/06/22 03/06/22 03/06/22 Range/Units 18:25 19:19 19:25 WBC (3.8-10.6) k/uL RBC (3.80-5.40) m/uL Hgb (11.4-16.0) gm/dL Hct (34.0-46.0) % MCV (80.0-100.0) fL MCH (25.0-35.0) pg MCHC (31.0-37.0) g/dL RDW (11.5-15.5) % Plt Count (150-450) k/uL MPV Neutrophils % % Lymphocytes % % Monocytes % % Eosinophils % % Basophils % % Neutrophils # (1.3-7.7) k/uL Lymphocytes # (1.0-4.8) k/uL Monocytes # (0-1.0) k/uL Eosinophils # (0-0.7) k/uL Basophils # (0-0.2) k/uL Hypochromasia Sodium (137-145) mmol/L Potassium (3.5-5.1) mmol/L Chloride (98-107) mmol/L Carbon Dioxide (22-30) mmol/L Anion Gap mmol/L BUN (7-17) mg/dL Creatinine (0.52-1.04) mg/dL Est GFR (CKD-EPI)AfAm (>60 ml/min/1.73 sqM) Est GFR (CKD-EPI)NonAf (>60 ml/min/1.73 sqM) Glucose (74-99) mg/dL Plasma Lactic Acid Ronnie (0.7-2.0) mmol/L Calcium (8.4-10.2) mg/dL Ionized Calcium Mila 2.8 L* (4.5-5.3) mg/dL Phosphorus 1.5 L (2.5-4.5) mg/dL Magnesium 2.1 (1.6-2.3) mg/dL Total Bilirubin (0.2-1.3) mg/dL AST (14-36) U/L ALT (4-34) U/L Alkaline Phosphatase (38-126) U/L Lactate Dehydrogenase (313-618) U/L Creatine Kinase (30-135) U/L Total Protein (6.3-8.2) g/dL Albumin (3.5-5.0) g/dL Amylase (30-110) U/L Lipase (23-300) U/L PTH Intact 176.0 H (14.0-72.0) pg/mL Urine Color Urine Appearance (Clear) Urine pH (5.0-8.0) Ur Specific [place] (1.001-1.035) Urine Protein (Negative) Urine Glucose (UA) (Negative) Urine Ketones (Negative) Urine Blood (Negative) Urine Nitrite (Negative) Urine Bilirubin (Negative) Urine Urobilinogen (<2.0) mg/dL Ur Leukocyte Esterase (Negative) Urine RBC (0-5) /hpf Urine WBC (0-5) /hpf Ur Squamous Epith Cells (0-4) /hpf 03/06/22 03/06/22 Range/Units 19:25 20:12 WBC (3.8-10.6) k/uL RBC (3.80-5.40) m/uL Hgb (11.4-16.0) gm/dL Hct (34.0-46.0) % MCV (80.0-100.0) fL MCH (25.0-35.0) pg MCHC (31.0-37.0) g/dL RDW (11.5-15.5) % Plt Count (150-450) k/uL MPV Neutrophils % % Lymphocytes % % Monocytes % % Eosinophils % % Basophils % % Neutrophils # (1.3-7.7) k/uL Lymphocytes # (1.0-4.8) k/uL Monocytes # (0-1.0) k/uL Eosinophils # (0-0.7) k/uL Basophils # (0-0.2) k/uL Hypochromasia Sodium (137-145) mmol/L Potassium (3.5-5.1) mmol/L Chloride (98-107) mmol/L Carbon Dioxide (22-30) mmol/L Anion Gap mmol/L BUN (7-17) mg/dL Creatinine (0.52-1.04) mg/dL Est GFR (CKD-EPI)AfAm (>60 ml/min/1.73 sqM) Est GFR (CKD-EPI)NonAf (>60 ml/min/1.73 sqM) Glucose (74-99) mg/dL Plasma Lactic Acid Ronnie (0.7-2.0) mmol/L Calcium (8.4-10.2) mg/dL Ionized Calcium Mila (4.5-5.3) mg/dL Phosphorus (2.5-4.5) mg/dL Magnesium (1.6-2.3) mg/dL Total Bilirubin (0.2-1.3) mg/dL AST (14-36) U/L ALT (4-34) U/L Alkaline Phosphatase (38-126) U/L Lactate Dehydrogenase (313-618) U/L Creatine Kinase 92 (30-135) U/L Total Protein (6.3-8.2) g/dL Albumin (3.5-5.0) g/dL Amylase 130 H (30-110) U/L Lipase 512 H (23-300) U/L PTH Intact (14.0-72.0) pg/mL Urine Color Light Yellow Urine Appearance Clear (Clear) Urine pH 7.5 (5.0-8.0) Ur Specific [place] 1.007 (1.001-1.035) Urine Protein Negative (Negative) Urine Glucose (UA) Trace H (Negative) Urine Ketones Negative (Negative) Urine Blood Small H (Negative) Urine Nitrite Negative (Negative) Urine Bilirubin Negative (Negative) Urine Urobilinogen <2.0 (<2.0) mg/dL Ur Leukocyte Esterase Negative (Negative) Urine RBC 1 (0-5) /hpf Urine WBC 1 (0-5) /hpf Ur Squamous Epith Cells <1 (0-4) /hpf - EKG Data EKG Comments: Normal sinus rhythm. Possible right ventricular conduction delay. Ventricular rate 96 bpm, NV interval 166 ms, QRS duration 98 ms, QTC 454 ms. (Stephy Young) Disposition <Stephy Young - Last Filed: 03/06/22 21:56> <Talia Haskins - Last Filed: 03/09/22 22:33> Clinical Impression: Hypocalcemia Disposition: ADMITTED IP TO THIS HOSP
[2022-03-06 18:40] LABS: Basophils % (A) 0 %; Eosinophils # (A) 0.1 k/uL (0-0.7); Eosinophils % (A) 1 %; HCT 31.9 % (34.0-46.0); HGB 11.3 gm/dL (11.4-16.0); Hypochromasia Slight; Lymphocytes # (A) 1.4 k/uL (1.0-4.8); Lymphocytes % (A) 21 %; MCH 34.1 pg (25.0-35.0); MCHC 35.6 g/dL (31.0-37.0); MCV 95.8 fL (80.0-100.0); Mean Platelet Volume 7.5; Monocytes # (A) 0.2 k/uL (0-1.0); Monocytes % (A) 3 %; Neutrophils % (A) 74 %; Platelet Count 225 k/uL (150-450); RBC 3.33 m/uL (3.80-5.40); RDW 13.1 % (11.5-15.5); WBC 6.8 k/uL (3.8-10.6)
[2022-03-06 18:51] LABS: ALT 30 U/L (4-34); AST 121 U/L (14-36); African American GFR (CKD) >90 (>60 ml/min/1.73 sqM); Albumin 3.3 g/dL (3.5-5.0); Alkaline Phosphatase 148 U/L (38-126); Anion Gap 3 mmol/L; Blood Urea Nitrogen 4 mg/dL (7-17); Carbon Dioxide 24 mmol/L (22-30); Chloride 111 mmol/L (98-107); Glucose 82 mg/dL (74-99); LDH 768 U/L (313-618); Non-African American GFR(CKD) >90 (>60 ml/min/1.73 sqM); Potassium 3.6 mmol/L (3.5-5.1); Sodium 138 mmol/L (137-145); Total Bilirubin 0.2 mg/dL (0.2-1.3); Total Protein 6.2 g/dL (6.3-8.2)
[2022-03-06 18:53] LABS: Calcium 4.9 mg/dL (8.4-10.2)
[2022-03-06 19:04] LABS: Magnesium 2.1 mg/dL (1.6-2.3); Phosphorus 1.5 mg/dL (2.5-4.5)
[2022-03-06] MEDS ORDERED: CALCIUM GLUCONATE IN NACL 1 GM in SALINE 1 100ML.BAG IVPB ONE (19:30)
[2022-03-06 19:58] LABS: Amylase 130 U/L (30-110); Creatine Kinase 92 U/L (30-135); Lipase 512 U/L (23-300)
[2022-03-06 20:25] LABS: Appearance,Urine Clear (Clear); Bilirubin,Urine Negative (Negative); Blood,Urine Small (Negative); Color,Urine Light Yellow; Glucose,Urine (UA) Trace (Negative); Ketones,Urine Negative (Negative); Leukocyte Esterase,Urine Negative (Negative); Nitrite,Urine Negative (Negative); PH, Urine 7.5 (5.0-8.0); Protein,Urine Negative (Negative); RBC,Urine 1 /hpf (0-5); Specific Gravity,Urine 1.007 (1.001-1.035); Squamous Epithelial Cell,Urine <1 /hpf (0-4); Urobilinogen,Urine <2.0 mg/dL (<2.0); WBC,Urine 1 /hpf (0-5)
[2022-03-06] MEDS ORDERED: IBUPROFEN 400 MG TAB PO PRN (20:34)
[2022-03-06] MEDS ORDERED: ACETAMINOPHEN TAB 325 MG TAB PO PRN (20:34)
[2022-03-06] MEDS ORDERED: NALOXONE 0.4 MG/ML 1 ML VIAL IV PRN (20:34)
[2022-03-06] MEDS ORDERED: CALCIUM GLUCONATE IN NACL 2 GM in SALINE 1 100ML.BAG IVPB ONE (20:49)
[2022-03-07 06:39] LABS: ALT 27 U/L (4-34); AST 119 U/L (14-36); African American GFR (CKD) >90 (>60 ml/min/1.73 sqM); Albumin 3.2 g/dL (3.5-5.0); Alkaline Phosphatase 148 U/L (38-126); Anion Gap 5 mmol/L; Blood Urea Nitrogen 4 mg/dL (7-17); Carbon Dioxide 22 mmol/L (22-30); Chloride 113 mmol/L (98-107); Glucose 77 mg/dL (74-99); Non-African American GFR(CKD) >90 (>60 ml/min/1.73 sqM); Potassium 3.8 mmol/L (3.5-5.1); Sodium 140 mmol/L (137-145); Total Bilirubin 0.1 mg/dL (0.2-1.3)
[2022-03-07 06:42] LABS: Calcium 4.9 mg/dL (8.4-10.2)
[2022-03-07] MEDS: PRENATAL VIT-IRON-FOLIC ACID 1 EACH TABLET PO SCH (08:24)
[2022-03-07] MEDS ORDERED: CALCIUM GLUCONATE IN NACL 2 GM in SALINE 1 100ML.BAG IVPB ONE ×2 (08:30→15:26)
[2022-03-07 09:34] LABS: Chol/HDL Ratio 2.98 Ratio; LDL Cholesterol,Calculated 160.4 mg/dL (0.0-131.0)
--- NOTE | 2022-03-07 10:48 | US ---
EXAMINATION TYPE: US abdomen complete DATE OF EXAM: 03/07/2022 COMPARISON: US 2013 CLINICAL HISTORY: elevated lft/lipase. Elevated LFT's, pt is post 5 days EXAM MEASUREMENTS: Liver Length: 15.8 cm Gallbladder Wall: 0.2 cm CBD: 0.3 cm Spleen: 10.8 cm Right Kidney: 11.5 x 4.6 x 4.6 cm Left Kidney: 12.5 x 4.8 x 4.9 cm Pancreas: wnl Liver: wnl Gallbladder: wnl Evidence for sonographic Greene's sign: No CBD: wnl Spleen: wnl Right Kidney: Slightly dilated renal pelvis-1.3 cm Left Kidney: wnl Upper IVC: wnl Abd Aorta: wnl The liver is homogenous. The intrahepatic portion of the IVC and proximal abdominal aorta are within normal limits. There is no evidence of cholelithiasis. Common bile duct is unremarkable. The visu alized portions of the pancreas are homogenous. The spleen is unremarkable. Kidneys are symmetric a nd free of hydronephrosis. No renal lesions are seen. IMPRESSION: No evidence for acute process.
[2022-03-07] MEDS: SODIUM CHLORIDE 0.9% 1,000 ML IV SCH (11:40)
[2022-03-07] MEDS: POTAS-SOD-PHOS 278-164-250 MG 1 EACH PACKET PO SCH ×3 (11:44→21:58)
--- NOTE | 2022-03-07 12:37 | P.OBCN ---
History of Present Illness Consult date: 03/07/22 Requesting physician: John Aragon Reason for consult: other (Numbness, muscle contractures, ) Chief complaint: Numbness and muscle contractures History of present illness: This is a 32-year-old female 2 para 2, who delivered vaginally 5 days ago, presented to the hospital with complaints of pins and needles feeling in her arms and legs and inability to contract her hand along with weakness in her legs to the point she was having difficulty walking. She states these symptoms started yesterday and did progress to the point she came to the hospital. She did call me earlier in the day yesterday and I advised her to go to the pharmacy and have her blood pressure checked due to headaches. Her blood pressure was normal she stated and her headaches have resolved since IV hydration. She stated when she arrived to the emergency room she could not even grasp anything with her hands. After she was given calcium IV, this didn't improve. She states the symptoms are starting to come back a little bit with some pins and needles in her hands and some muscle cramping in her legs. She was gestational diabetic diet controlled during her and was knots drinking any milk during her . She did not gain a significant amount of weight during her either. Upon arrival to the hospital, her blood calcium level was extremely low, AST was mildly elevated, and amylase and lipase were elevated. Also PTH was elevated. Other labs are pending at this time. In looking back at her previous labs throughout the years, it does appear her AST has been mildly elevated since at least 2014. Obstetrical history: . History of 2 vaginal deliveries at term. History of gestational diabetes during her last , diet controlled. She is currently breast-feeding. Review of Systems Constitutional: Reports weakness Eyes: denies blurred vision, denies pain Ears, nose, mouth and throat: Reports headache (Resolved with IV hydration) Cardiovascular: Denies chest pain, Denies shortness of breath Respiratory: Denies cough Gastrointestinal: Reports loss of appetite, Reports nausea, Denies abdominal pain, Denies diarrhea, Denies vomiting Genitourinary: Denies abnormal vaginal bleeding Menstruation: Reports period light Musculoskeletal: Reports low back pain (lower right), Reports muscle cramps, Reports muscle weakness Integumentary: Denies pruritus, Denies rash Neurological: Reports paresthesias, Reports transient paralysis (Unable to walk for a short time yesterday and unable to open her hands yesterday), Reports weakness Psychiatric: Reports anxiety, Reports depression Past Medical History Past Medical History: Neurologic Disorder History of Any Multi-Drug Resistant Organisms: None Reported Additional Past Surgical History / Comment(s): oral, exploratory laparoscopy 8 years ago Past Anesthesia/Blood Transfusion Reactions: No Reported Reaction Past Psychological History: Anxiety, Depression Smoking Status: Former smoker Past Alcohol Use History: Occasional Past Drug Use History: None Reported - Past Family History Mother Family Medical History: No Reported History Father Family Medical History: No Reported History Medications and Allergies Home Medications Medication Instructions Recorded Confirmed Type Vit No.180/Iron/Folic 1 tab PO DAILY 09/11/19 03/06/22 History [ Plus Vitamin-Mineral] Ibuprofen [Motrin] 600 mg PO Q6HR PRN #30 tab 03/03/22 03/06/22 Rx Allergies Allergy/AdvReac Type Severity Reaction Status Date / Time adhesive tape Allergy Rash/Hives Verified 03/06/22 19:12 Exam Osteopathic Statement: *. No significant issues noted on an osteopathic structural exam other than those noted in the History and Physical/Consult. Vital Signs Temp Pulse Pulse Resp BP BP BP 03/07/22 07:00 98.6 F 106 H 15 115/84 03/07/22 04:46 98.4 F 84 17 117/77 03/06/22 22:38 98.1 F 91 18 124/85 03/06/22 21:59 98.2 F 97 18 120/88 03/06/22 20:18 99 18 122/91 03/06/22 17:44 98.1 F 101 H 16 124/76 Pulse Ox 03/07/22 07:00 98 03/07/22 04:46 99 03/06/22 22:38 100 03/06/22 21:59 98 03/06/22 20:18 98 03/06/22 17:44 98 Intake and Output 03/06/22 03/07/22 03/07/22 22:59 06:59 14:59 Intake Total 118 Balance 118 Intake: Oral 118 Other: # Voids 1 1 Weight 63.503 kg Gen.: Well-developed female in no acute distress sitting up in her bed HEENT: Within normal limits, no neck masses are palpated Heart: Regular rate and rhythm Lungs: Clear to auscultation bilaterally Abdomen: Soft, fundus firm and nontender below the umbilicus Extremities: No swelling, negative Homans Results Result Diagrams: 03/06/22 18:25 03/07/22 06:05 Abnormal Lab Results - Last 24 Hours (Table) 03/06/22 03/06/22 03/06/22 Range/Units 18:25 18:25 18:25 RBC 3.33 L (3.80-5.40) m/uL Hgb 11.3 L (11.4-16.0) gm/dL Hct 31.9 L (34.0-46.0) % Chloride 111 H (98-107) mmol/L BUN 4 L (7-17) mg/dL Creatinine 0.40 L (0.52-1.04) mg/dL Calcium 4.9 L* (8.4-10.2) mg/dL Ionized Calcium Mila (4.5-5.3) mg/dL Phosphorus 1.5 L (2.5-4.5) mg/dL Total Bilirubin (0.2-1.3) mg/dL AST 121 H (14-36) U/L Alkaline Phosphatase 148 H (38-126) U/L Lactate Dehydrogenase 768 H (313-618) U/L Total Protein 6.2 L (6.3-8.2) g/dL Albumin 3.3 L (3.5-5.0) g/dL Cholesterol (0.00-200.00) mg/dL LDL Cholesterol, Calc (0.0-131.0) mg/dL HDL Cholesterol (40.00-60.00) mg/dL Amylase (30-110) U/L Lipase (23-300) U/L PTH Intact (14.0-72.0) pg/mL Urine Glucose (UA) (Negative) Urine Blood (Negative) 03/06/22 03/06/22 03/06/22 Range/Units 19:19 19:25 19:25 RBC (3.80-5.40) m/uL Hgb (11.4-16.0) gm/dL Hct (34.0-46.0) % Chloride (98-107) mmol/L BUN (7-17) mg/dL Creatinine (0.52-1.04) mg/dL Calcium (8.4-10.2) mg/dL Ionized Calcium Mila 2.8 L* (4.5-5.3) mg/dL Phosphorus (2.5-4.5) mg/dL Total Bilirubin (0.2-1.3) mg/dL AST (14-36) U/L Alkaline Phosphatase (38-126) U/L Lactate Dehydrogenase (313-618) U/L Total Protein (6.3-8.2) g/dL Albumin (3.5-5.0) g/dL Cholesterol (0.00-200.00) mg/dL LDL Cholesterol, Calc (0.0-131.0) mg/dL HDL Cholesterol (40.00-60.00) mg/dL Amylase 130 H (30-110) U/L Lipase 512 H (23-300) U/L PTH Intact 176.0 H (14.0-72.0) pg/mL Urine Glucose (UA) (Negative) Urine Blood (Negative) 03/06/22 03/06/22 03/07/22 Range/Units 20:12 21:48 06:05 RBC (3.80-5.40) m/uL Hgb (11.4-16.0) gm/dL Hct (34.0-46.0) % Chloride 113 H (98-107) mmol/L BUN 4 L (7-17) mg/dL Creatinine 0.51 L (0.52-1.04) mg/dL Calcium 4.9 L* (8.4-10.2) mg/dL Ionized Calcium Mila (4.5-5.3) mg/dL Phosphorus (2.5-4.5) mg/dL Total Bilirubin 0.1 L (0.2-1.3) mg/dL AST 119 H (14-36) U/L Alkaline Phosphatase 148 H (38-126) U/L Lactate Dehydrogenase (313-618) U/L Total Protein 6.0 L (6.3-8.2) g/dL Albumin 3.2 L (3.5-5.0) g/dL Cholesterol 269.00 H (0.00-200.00) mg/dL LDL Cholesterol, Calc 160.4 H (0.0-131.0) mg/dL HDL Cholesterol 90.40 H (40.00-60.00) mg/dL Amylase (30-110) U/L Lipase (23-300) U/L PTH Intact (14.0-72.0) pg/mL Urine Glucose (UA) Trace H (Negative) Urine Blood Small H (Negative) Assessment and Plan (1) Lactating mother Current Visit: Yes Status: Acute Code(s): Z39.1 - ENCOUNTER FOR CARE AND EXAMINATION OF LACTATING MOTHER SNOMED Code(s): 203170410 (2) Hypocalcemia Current Visit: Yes Status: Acute Code(s): E83.51 - HYPOCALCEMIA SNOMED Code(s): 2185039 (3) Secondary hypoparathyroidism Current Visit: Yes Status: Acute Code(s): E20.8 - OTHER HYPOPARATHYROIDISM SNOMED Code(s): 942194958 Plan: I am unsure as to the cause of her severe hypocalcemia and secondary hypoparathyroidism. Vitamin D deficiency should be ruled out and I see that her vitamin D level is pending at this time. I would suggest supplementing with vitamin D, possibly D2 to increase her vitamin D levels. Increase calcium and vitamin D in her diet. Possible nutrition consult. I recommend consultation with endocrinology however no calender tender is on staff at the hospital. I have advised her to continue pumping her breast milk at this time. She should consult with her distribution coordinator regarding baby's needs. Dr. Prince will be back tomorrow and will continue to follow.
[2022-03-07 14:43] LABS: Ionized Calcium 3.5 mg/dL (4.5-5.3)
[2022-03-07 14:44] LABS: ALT 26 U/L (4-34); AST 118 U/L (14-36); African American GFR (CKD) >90 (>60 ml/min/1.73 sqM); Albumin 3.1 g/dL (3.5-5.0); Albumin/Globulin Ratio 1.1; Alkaline Phosphatase 132 U/L (38-126); Anion Gap 2 mmol/L; Blood Urea Nitrogen 5 mg/dL (7-17); Carbon Dioxide 22 mmol/L (22-30); Chloride 114 mmol/L (98-107); Globulin 2.8 g/dL; Glucose 104 mg/dL (74-99); Non-African American GFR(CKD) >90 (>60 ml/min/1.73 sqM); Potassium 4.1 mmol/L (3.5-5.1); Sodium 138 mmol/L (137-145); Total Bilirubin 0.1 mg/dL (0.2-1.3); Total Protein 5.9 g/dL (6.3-8.2)
[2022-03-07] MEDS ORDERED: ERGOCALCIFEROL 1,250 MCG (50,000 IU) CAPSULE PO SCH (14:45)
[2022-03-07 14:49] LABS: Calcium 5.6 mg/dL (8.4-10.2)
[2022-03-07] MEDS: CALCIUM CARB-VIT D 500 MG-5 MCG TAB PO SCH (16:10)
[2022-03-07 21:43] LABS: Hepatitis A Antibody IgM Nonreactive (Nonreactive); Hepatitis B Core IgM Nonreactive (Nonreactive); Hepatitis B Surface Antigen Nonreactive (Nonreactive); Hepatitis C IgG Antibody Nonreactive (Nonreactive)
[2022-03-07 21:54] LABS: % Iron Saturation 6.97 (12.00-45.00)
[2022-03-08] MEDS: SODIUM CHLORIDE 0.9% 1,000 ML IV SCH ×2 (00:43→14:32)
[2022-03-08] MEDS: PRENATAL VIT-IRON-FOLIC ACID 1 EACH TABLET PO SCH (08:58)
[2022-03-08] MEDS: CALCIUM CARB-VIT D 500 MG-5 MCG TAB PO SCH ×2 (08:58→17:16)
[2022-03-08] MEDS: POTAS-SOD-PHOS 278-164-250 MG 1 EACH PACKET PO SCH ×3 (08:59→21:43)
[2022-03-08 11:20] LABS: ALT 27 U/L (8-44); AST 119 U/L (13-35); African American GFR (CKD) 154.6 (60.0-200.0); Albumin 3.6 g/dL (3.8-4.9); Albumin/Globulin Ratio 1.42 (1.60-3.17); Alkaline Phosphatase 125 U/L (41-126); BUN/Creat Ratio 12.67 Ratio (12.00-20.00); Blood Urea Nitrogen 5.8 mg/dL (9.0-27.0); Calcium 6.5 mg/dL (8.7-10.3); Carbon Dioxide 20.3 mmol/L (20.0-27.5); Chloride 111 mmol/L (96-109); Globulin 2.6 g/dL (1.6-3.3); Glucose 91 mg/dL (70-110); Non-African American GFR(CKD) 133.4 (60.0-200.0); Potassium 4.1 mmol/L (3.5-5.5); Sodium 142 mmol/L (135-145); Total Bilirubin <0.15 mg/dL (0.30-1.20); Total Protein 6.2 g/dL (6.2-8.2)
[2022-03-08] MEDS ORDERED: ERGOCALCIFEROL 1,250 MCG (50,000 IU) CAPSULE PO SCH (12:00)
[2022-03-08] MEDS ORDERED: CALCIUM GLUCONATE IN NACL 2 GM in SALINE 1 100ML.BAG IVPB ONE (12:10)
--- NOTE | 2022-03-08 12:20 | P.PN ---
Progress Note - Text Progress Note Date: 03/08/22 S/P NVD hx GDMA1 and currently admitted with hypocalcemia. Pt seen and examined. Her symptoms are improved today. Still feeling very fatigued and some brain fog but not having the contractures of her hands anymore. She is pumping breast milk and getting a large amount. Her calcium level is still low but at 6.5 is no longer considered critical. VSS Abdomen: fundus firm Extremeties: neg amrita's A1. S/P NVD with GDMA1 2. hypocalcemia with unknown cause p 1. pt on calcium supplements per family practice 2. cont vitamin D 3. I cannot see an obstetric cause for this at this time.
--- NOTE | 2022-03-08 13:51 | PN ---
PROGRESS NOTE are still elevated, but improving. Albumin slowly improving. She has high cholesterol. B12 is okay, folic acid, TSH were all okay. Urine is okay. Suspect she has some severe hypocalcemia secondary to vitamin D deficiency and possibly some poor habits to her as she has only gained 8 pounds during due to her diabetic diet and she has been not eating much at all she says. Temperature 97.7, blood pressure 115/78, respiratory 16 to 18, temp 98, O2 99. Cardiovascular S1-S2. Lungs clear. GI soft. ASSESSMENT: 1. Hypocalcemia greatly improved. We did abdominal ultrasound as she had elevated amylase and lipase. 2. No cholelithiasis. Pancreas is okay. 3. Kidney shows no signs of hydronephrosis and no kidney stones. No pancreatic calcifications. Discussed case with dealer support technician over the phone, who agreed with vitamin D deficiency. Give vitamin D biweekly for while. Her calcium should improve. Possibly send her home today if she is doing better. Otherwise, I will keep her 1 more day and wait for further orders. Restart on Neutra-Phos for phosphate deficiency, Os-Tip with vitamin D b.i.d. also. PROGNOSIS: Guarded. MMODL / IJN: [id number] /
[2022-03-08 17:08] VITALS: BMI 24.0
[2022-03-08 22:58] LABS: % Iron Saturation 24.22 (12.00-45.00)
[2022-03-09] MEDS: SODIUM CHLORIDE 0.9% 1,000 ML IV SCH ×2 (01:11→15:50)
[2022-03-09 03:33] VITALS: RESP 16
--- NOTE | 2022-03-09 07:49 | P.PN ---
Progress Note - Text Progress Note Date: 03/09/22 Status post normal vaginal delivery admitted with hypocalcemia The general consensus is that the hypocalcemia was caused from a vitamin D deficiency. Patient had a consultation with dietitian yesterday who gave her a list of calcium rich foods. I do see that her cholesterol was checked here in the hospital. 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 It is important that her cholesterol remain high so that she can continue to produce estrogen at an elevated rate. Overall patient feels much better today her contractions are gone and her brain fog is improved. He does have a new complaint of low pelvic pain which is increased just after urination. I will run a urinalysis and culture and start her on Bactrim. Vital signs stable Heart: Regular rate and rhythm Lungs: Clear to auscultation bilaterally Abdomen: Fundus firm, deviated to the right, tender over the fundus but more tender over bladder. Extremities: Negative Homans sign Assessment 1 status post normal vaginal delivery 2. Hypocalcemia: Improved and consensus is this is due to a vitamin D defi ciency Plan 1. Urinalysis and culture 2. Bactrim DS twice daily 3. Would advise discharge home today and follow-up with me in 2 weeks.
[2022-03-09] MEDS: POTAS-SOD-PHOS 278-164-250 MG 1 EACH PACKET PO SCH ×2 (07:58→15:48)
[2022-03-09] MEDS: PRENATAL VIT-IRON-FOLIC ACID 1 EACH TABLET PO SCH (07:58)
[2022-03-09] MEDS: CALCIUM CARB-VIT D 500 MG-5 MCG TAB PO SCH ×2 (07:58→17:06)
[2022-03-09 08:52] LABS: Appearance,Urine Clear (Clear); Bacteria,Urine Rare /hpf; Bilirubin,Urine Negative (Negative); Blood,Urine Large (Negative); Color,Urine Light Yellow; Glucose,Urine (UA) Negative (Negative); Ketones,Urine Negative (Negative); Leukocyte Esterase,Urine Moderate (Negative); Mucus,Urine Rare /hpf; Nitrite,Urine Negative (Negative); PH, Urine 6.5 (5.0-8.0); Protein,Urine Negative (Negative); RBC,Urine 58 /hpf (0-5); Specific Gravity,Urine 1.011 (1.001-1.035); Squamous Epithelial Cell,Urine 2 /hpf (0-4); Urobilinogen,Urine <2.0 mg/dL (<2.0); WBC,Urine 14 /hpf (0-5)
[2022-03-09 14:00] VITALS: BP 119/76; PULSE 88; TEMP 98.6
[2022-03-09] MEDS ORDERED: CALCIUM GLUCONATE IN NACL 2 GM in SALINE 1 100ML.BAG IVPB ONE (16:00)
--- NOTE | 2022-03-09 17:40 | CT ---
EXAMINATION TYPE: CT abdomen pelvis wo con DATE OF EXAM: 03/09/2022 COMPARISON: None HISTORY: pancreatitis CT DLP: 318 mGycm Automated exposure control for dose reduction was used. Images obtained from the diaphragm to the floor of the pelvis with no contrast. Lung bases are clear. No pleural effusion. Heart size is normal. No pericardial effusion. Liver splee n and stomach pancreas gallbladder appear intact. The bile ducts are not dilated. There is no adrenal mass. There are multiple bilateral small renal calculi up to 3 mm. No hydronephro sis. Ureters are not dilated. There is no retroperitoneal adenopathy. Appendix is posterior and appea rs normal. Uterus is enlarged with increased density in the endometrial cavity and lower uterine segm ent that could be hemorrhage. Uterus measures 16 x 8.6 cm. No adnexal mass. No free fluid in the pelv is. No inguinal hernia. No evidence of bladder mass. There is no ascites or free air. No bowel obstruction. No evidence of pancreatitis. Lumbar vertebrae have normal alignment. No compression fracture. Disc spaces are fairly normal. The b stefano pelvis is intact. IMPRESSION: Numerous small bilateral nonobstructing renal calculi. Normal appendix. No evidence of pancreatitis. Enlarged uterus with mixed attenuation in the endometrial region that could be endometrial hemorrhage .
[2022-03-10] MEDS ORDERED: ERGOCALCIFEROL 1,250 MCG (50,000 IU) CAPSULE PO SCH (09:00)
== END 2022-03-09 17:23 | disposition home or self-care (01) | DRG 776 ==
LOC: EC 17:33 → 6NMEDSUR 20:59
PROVIDERS: ADMIT Family Medicine; ATTEND Family Medicine
DX: O99.285 Endocrine, nutritional and metabolic diseases complicating the puerperium (principal); E20.8 Other hypoparathyroidism; E55.9 Vitamin D deficiency, unspecified; O99.345 Other mental disorders complicating the puerperium; O90.89 Other complications of the puerperium, not elsewhere classified; F41.9 Anxiety disorder, unspecified; F32.A Depression, unspecified; E78.00 Pure hypercholesterolemia, unspecified; E88.09 Other disorders of plasma-protein metabolism, not elsewhere classified; M62.40 Contracture of muscle, unspecified site; Z87.891 Personal history of nicotine dependence; Z91.048 Other nonmedicinal substance allergy status; Z86.32 Personal history of gestational diabetes
CPT/HCPCS: 36415; 74176; 76700; 80053; 80061; 80074; 81001; 82150; 82306; 82310; 82330; 82550; 82607; 82652; 82746; 83540; 83550; 83605; 83615; 83690; 83735; 83970; 84100; 84443; 85025; 87086; 93005

== ENCOUNTER → 2022-03-28 | Outpatient (CLI) | payer OTHER ==
[2022-03-28 13:54] LABS: Calcium 10.6 mg/dL (8.4-10.2)
== END | disposition home or self-care (01) ==
LOC: LABWHC1 11:31
PROVIDERS: ATTEND Family Medicine
DX: R53.83 Other fatigue (principal); K37 Unspecified appendicitis
CPT/HCPCS: 36415; 82150; 82306; 82310; 82947; 83036; 83540; 83690; 83970

== ENCOUNTER → 2022-04-18 | Outpatient (CLI) | payer OTHER ==
[2022-04-19 00:23] LABS: Calcium 9.7 mg/dL (8.7-10.3)
== END | disposition home or self-care (01) ==
LOC: LABWHC1 15:05
PROVIDERS: ATTEND Family Medicine
DX: I10 Essential (primary) hypertension (principal); Z79.899 Other long term (current) drug therapy
CPT/HCPCS: 36415; 82150; 82306; 82310; 83036; 83690; 83970

== ENCOUNTER → 2022-05-13 | Outpatient (CLI) | payer OTHER ==
[2022-05-13 12:03] LABS: Glucose 2 Hour 104 mg/dL
== END | disposition home or self-care (01) ==
LOC: LABWHC1 07:51
PROVIDERS: ATTEND Family Medicine
DX: Z79.899 Other long term (current) drug therapy (principal)
CPT/HCPCS: 36415; 82947; 82950

== ENCOUNTER → 2022-06-23 | Outpatient (CLI) | payer OTHER ==
--- NOTE | 2022-06-23 08:22 | US ---
EXAMINATION TYPE: US abdomen complete DATE OF EXAM: 06/23/2022 COMPARISON: 03/07/2022 Ultrasound, 03/09/2022 CT CLINICAL HISTORY: Generalized abdomen pain TECHNIQUE: Multiple sonographic images of the abdomen are obtained. FINDINGS: EXAM MEASUREMENTS: Liver Length: 14.4 cm Gallbladder Wall: 0.17 cm CBD: 0.37 cm Spleen: 10.2 cm Right Kidney: 11.2 x 4.3 x 3.8 cm Left Kidney: 11.4 x 5.4 x 4.1 cm Pancreas: wnl Liver: wnl Gallbladder: wnl Evidence for sonographic Greene's sign: No CBD: wnl Spleen: wnl Right Kidney: Echogenic pyramids Left Kidney: Limited by overlying bowel gas Upper IVC: wnl Abd Aorta: wnl The liver is homogenous. The intrahepatic portion of the IVC and visualized abdominal aorta are with in normal limits. There is no evidence of shadowing mobile cholelithiasis. Common bile duct is unre markable. The visualized portions of the pancreas are homogenous. The spleen is unremarkable. Kidn eys are symmetric and free of hydronephrosis. No solid or cystic renal lesions are seen. IMPRESSION: Hyperechoic renal pyramids raises concern for underlying medullary nephrocalcinosis. Tiny renal calculi on CT less well seen on ultrasound. No acute findings are evident.
--- NOTE | 2022-06-23 08:23 | US ---
EXAMINATION TYPE: US pelvic complete DATE OF EXAM: 06/23/2022 COMPARISON: NONE CLINICAL HISTORY: Bilateral pelvic pain since post x 4 months TECHNIQUE: . Transabdominal sonographic images of the pelvis were acquired. Date of LMP: Unknown EXAM MEASUREMENTS: Uterus: 8.2 x 3.8 x 4.5 cm Endometrial Stripe: 0.34 cm Right Ovary: 2.5 x 2.8 x 1.8 cm Left Ovary: 3.0 x 2.5 x 1.8 cm 1. Uterus: Anteverted wnl 2. Endometrium: wnl 3. Right Ovary: wnl 4. Left Ovary: wnl 5. Bilateral Adnexa: wnl 6. Posterior cul-de-sac: wnl Anteverted uterus redemonstrated. Uterus now normal in size after more time interval since delivery o f baby. IMPRESSION: Unremarkable transabdominal pelvic ultrasound.
== END | disposition home or self-care (01) ==
LOC: RADUSWWP 06:59
PROVIDERS: ATTEND Family Medicine
DX: R10.32 Left lower quadrant pain (principal)
CPT/HCPCS: 76700; 76856

== ENCOUNTER → 2023-06-16 | Outpatient (CLI) | payer BC ==
--- NOTE | 2023-06-16 08:56 | US ---
EXAMINATION TYPE: US gallbladder DATE OF EXAM: 06/16/2023 COMPARISON: US Abdomen 06/25 CLINICAL INDICATION: Female, 33 years old with history of R10.11 RIGHT UPPER QUADRANT PAIN; Abdominal discomfort TECHNIQUE: Multiple sonographic images of the right upper quadrant are obtained. 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 Examination is otherwise unremarkable.
== END | disposition home or self-care (01) ==
LOC: RADUSWWP 07:32
PROVIDERS: ATTEND Family Medicine
DX: R10.11 Right upper quadrant pain (principal)
CPT/HCPCS: 76705

== ENCOUNTER → 2023-06-20 | Outpatient (CLI) | payer BC | END | disposition home or self-care (01) | LOC: RADCTMAIN 09:16 | PROVIDERS: ATTEND Family Medicine | DX: Z53.9 Procedure and treatment not carried out, unspecified reason (principal) ==

== ENCOUNTER → 2023-06-28 | Outpatient (CLI) | payer BC ==
--- NOTE | 2023-06-28 11:10 | CT ---
EXAMINATION TYPE: CT abdomen wo con DATE OF EXAM: 06/28/2023 COMPARISON: 03/09/2022 HISTORY: abnormal pancreatic labs CT DLP: 182.3 mGycm Examination of the solid and hollow viscera is limited given the lack of contrast. Unenhanced CT of t he abdomen was performed. Lack of contrast limits evaluation. GI contrast was administered. FINDINGS: LUNG BASES: No evidence for nodule. No evidence for infiltrate. LIVER/GB: The gallbladder is unremarkable. No space-occupying hepatic lesion. PANCREAS: No pancreatic mass identified. No inflammatory process seen. SPLEEN: No evidence for splenomegaly. No intrasplenic lesions seen. ADRENALS: No adrenal nodules identified. No evidence for thickening. KIDNEYS: No evidence for renal mass. 4 mm calculus upper pole right kidney as well as a 2 mm calculus upper pole left kidney. No hydronephrosis. BOWEL: Appendix has a normal appearance. No evidence of bowel obstruction. No inflammatory process. Lymph nodes: No evidence for adenopathy greater than 1 cm. Abdominal aorta: Atheromatous changes seen. No evidence for aneurysm. Other: No significant abnormality. IMPRESSION: 1. No distinct pancreatic abnormality seen on noncontrast CT of the abdomen. Correlate clinically. 2. Nonobstructing nephrolithiasis.
== END | disposition home or self-care (01) ==
LOC: RADCTMAIN 09:44
PROVIDERS: ATTEND Family Medicine
DX: N20.0 Calculus of kidney (principal); R74.8 Abnormal levels of other serum enzymes
CPT/HCPCS: 74150

== ENCOUNTER → 2023-08-04 | Outpatient (CLI) | payer BC ==
--- NOTE | 2023-08-04 09:45 | NM ---
EXAMINATION TYPE: NM hepatobiliary w EF DATE OF EXAM: 08/04/2023 9:24 AM COMPARISON: CT abdomen pelvis most recent from 06/28/2023. CLINICAL INDICATION:Female, 33 years old with history of R10.11 RUQ pain; TECHNIQUE: The patient was given 4 mCi of Technetium 99m-Mebrofenin as a radiotracer and multiple sc intigraphic images were obtained of the abdomen. Gallbladder function was also assessed after the adm inistration of ensure drink and additional scintigraphic images were obtained of the abdomen. A regio n of interest was drawn over the gallbladder and a timing activity curve was generated. The gallbladd er ejection fraction was calculated. FINDINGS: Normal uptake of radiotracer was identified within the liver with excretion into the hepatic and comm on biliary ducts . There was normal progressive washout of the liver over the course of the study. Ra diotracer uptake within the gallbladder at 6 minutes as well as small bowel activity was identified a t 30 minutes. Maximum calculated gallbladder ejection fraction is: 61% at 30 minutes (Normal gallbladder ejection fraction is > 35%) IMPRESSION: 1. Normal hepatobiliary scan. 2. Normal ejection fraction.
== END | disposition home or self-care (01) ==
LOC: RADNMMAIN 06:43
PROVIDERS: ATTEND Family Medicine
DX: R10.11 Right upper quadrant pain (principal)
CPT/HCPCS: 78226; A9537

== ENCOUNTER → 2024-08-09 | Outpatient (CLI) | payer BC | END | disposition home or self-care (01) | LOC: LABWHC1 08:32 | PROVIDERS: ATTEND Internal Medicine Gastroenterology | DX: R74.8 Abnormal levels of other serum enzymes (principal) | CPT/HCPCS: 36415 ==